=== PATIENT | female | born 1970 | race Caucasian/White ===

== ENCOUNTER 2019-12-08 09:16 | Outpatient (CLI) | payer BC, SELFPAY ==
--- NOTE | 2019-12-08 10:21 | ECG_ITS ---
[facility] ED Test Date: 2019-12-08 Pat Name: Radha Gallagher Department: Room: Gender: Female [employer]: : 1970 Requested By: Wili Zepeda Order Number: [id number] Juanito MD: Ronny Martínez M.D. Measurements Intervals Continental Rate: 69 P: 48 NH: 153 QRS: 28 QRSD: 82 T: 46 QT: 389 QTc: 418 Interpretive Statements SINUS RHYTHM Compared to ECG 10/24/2018 15:29:50 No significant changes Electronically Signed On 12-08-2019 17:47:00 CDT by Ronny Martínez M.D. [email or web address]
[2019-12-08 11:39] LABS: Basophils # 0.1 10^3/uL (0.0-0.1); Basophils % 0.9 %; Eosinophils # 0.1 10^3/uL (0.0-0.8); Eosinophils % 1.8 %; Hematocrit 40.6 % (37.0-47.0); Hemoglobin 12.9 g/dL (11.5-15.3); Lymphocytes % 30.2 %; Mean Corpuscular HGB Conc 31.8 g/dL (30.0-36.0); Mean Corpuscular Hemoglobin 29.3 pg (28.0-34.0); Mean Corpuscular Volume 92.1 fL (81-99); Mean Platelet Volume 9.5 fL (7.4-10.4); Monocytes # 0.5 10^3/uL (0.2-0.9); Monocytes % 7.1 %; Neutrophils % 59.8 %; Nucleated Red Blood Cells % 0 %; Platelet Count 338 10^3/cmm (130-400); Red Blood Count 4.41 10^6/uL (4.1-5.3); Red Cell Distribution Width 15.7 % (12.1-15.1); White Blood Count 6.6 10^3/uL (4.0-10.0)
[2019-12-08 12:01] LABS: Alanine Aminotransferase 11 U/L (0-33); Albumin Level 4.6 g/dL (3.5-5.2); Alkaline Phosphatase 83 IU/L (35-105); Anion Gap 16.4 (5-19); Aspartate Amino Transferase 16 U/L (0-32); Blood Urea Nitrogen 8 mg/dL (6-20); Calcium 9.6 mg/dL (8.5-10.5); Carbon Dioxide 25 mmol/L (22-29); Chloride 101 mmol/L (98-107); Globulin 3.3 g/dL (1.3-4.6); Glomerular Filtration Rate 88.9 mL/min (90-130); Glucose 97 mg/dL (65-115); Osmolality Calculated 282 mOsm/kg (285-295); Potassium 4.4 mmol/L (3.5-5.1); Sodium 138 mmol/L (136-145); Total Bilirubin 0.3 mg/dL (0.15-1.2); Total Protein 7.9 g/dL (6.6-8.7)
== END 2019-12-08 09:17 | disposition home or self-care (01) ==
PROVIDERS: Family Provider Physician Assistant; Visit Provider Specialist
DX: Z01.810 Encounter for preprocedural cardiovascular examination (principal)
CPT/HCPCS: 36415; 80053; 85025; 93005

== ENCOUNTER 2019-12-15 | Outpatient (CLI) | payer BC, SELFPAY | END 2019-12-15 23:00 | disposition home or self-care (01) | LOC: LAB 01-31 08:45 | PROVIDERS: Family Provider Physician Assistant; Visit Provider Family Medicine | DX: C44.311 Basal cell carcinoma of skin of nose (principal) | CPT/HCPCS: 80500; 88305 ==

== ENCOUNTER 2020-07-11 11:45 | Outpatient (CLI) | payer BC, SELFPAY ==
--- NOTE | 2020-07-11 | US_ITS ---
WS: [id number] ULTRASOUND PELVIS TECHNIQUE: Transabdominal. Transvaginal deferred CLINICAL INFORMATION: MENORRHAGIA, PREMENOPAUSAL LMP: 07/03/2020 : No. COMPARISON: None. FINDINGS: Uterus Orientation: Anteverted. Size: 10.1 cm x 6.5 cm x 5.1 cm Masses: None. Cervix: 3.8 cm. Endometrium: Focal lobular endometrial thickening suspicious for polyp measuring 2.0 x 1.6 x 2.1 cm. Endometrium thickness: 14 mm. Adnexa: Heterogeneous ovarian lesions bilaterally measuring 2.7 x 5.0 x 3.0 cm on the right and 3.7 x 3.8 x 3.8 cm in the left suspicious for hemorrhagic cysts. Right ovary size: 4.4 cm x 5.0 cm x 2.7 cm. Right ovary volume: 31.7 ccm3 Left ovary size: 5.5 cm x 4.2 cm x 4.9 cm. Left ovary volume: 58.4 ccm3 Free fluid: None. Other findings: None. US/US pelvic complete* [id number] IMPRESSION: 1. Focal lobular endometrial thickening suspicious for polyp measuring 2.0 x 1 .6 x 2.1 cm. 2. Diffuse endometrial thickening measuring 14 mm. 3. Complex heterogeneous ovarian lesions bilaterally measuring 2.7 x 5.0 x 3.0 cm on the right and 3.7 x 3.8 x 3.8 cm in the left suspicious for hemorrhagic cyst. Recommend follow-up in one to 2 menstrual cycles.
== END 2020-07-11 11:46 | disposition home or self-care (01) ==
LOC: RADOUTREAD 13:03
PROVIDERS: PCP Physician Assistant; Visit Provider Physician Assistant
DX: N92.4 Excessive bleeding in the premenopausal period (principal)
CPT/HCPCS: 76856

== ENCOUNTER → 2020-07-13 13:34 | Outpatient (BNVA) | payer BC, SELFPAY | PROVIDERS: PCP Physician Assistant; Visit Provider Obstetrics & Gynecology | DX: Z20.822 Contact with and (suspected) exposure to COVID-19 (principal); Z01.812 Encounter for preprocedural laboratory examination; N92.4 Excessive bleeding in the premenopausal period; N83.8 Other noninflammatory disorders of ovary, fallopian tube and broad ligament | CPT/HCPCS: 81025; 87635 ==

== ENCOUNTER 2021-01-26 11:44 | Outpatient (CLI) | payer BC, SELFPAY ==
--- NOTE | 2021-01-26 11:48 | MM_ITS ---
WS: [id number] BILATERAL DIGITAL SCREENING MAMMOGRAPHY WITH CAD CLINICAL INFORMATION: SCREENING HISTORY: Screening mammogram. No current complaints. COMPARISON: October 04, 2015 TECHNIQUE: Bilateral CC and MLO views. FINDINGS: The breasts are composed of heterogeneous fibroglandular density tissue, which can limit the detectio n of small underlying mass lesions. No suspicious mass, asymmetry, calcifications, or architectural d istortion. No evidence of malignancy. MM/[place] [id number] IMPRESSION: BI-RADS: 1-Negative FOLLOW UP: 1 Year Follow-up Recommend return to annual screening mammography.
== END 2021-01-26 11:45 | disposition home or self-care (01) ==
LOC: RADSHAW 11:46
PROVIDERS: PCP Physician Assistant; Visit Provider Physician Assistant
DX: Z12.31 Encounter for screening mammogram for malignant neoplasm of breast (principal)
CPT/HCPCS: 77067

== ENCOUNTER 2022-10-23 12:40 | Outpatient (CLI) | payer OTHER, SELFPAY ==
--- NOTE | 2022-10-23 13:03 | MM_ITS ---
WS: [id number] BILATERAL 3D TOMOSYNTHESIS DIGITAL SCREENING MAMMOGRAPHY WITH CAD CLINICAL INFORMATION: SCREENING HISTORY: Screening mammogram. No current complaints. COMPARISON: 2020 TECHNIQUE: Bilateral CC and MLO views. FINDINGS: Scattered fibroglandular densities bilaterally. No suspicious focal mass, asymmetry, calcifications, or architectural distortion. No evidence of malignancy. MM/[place] [id number] IMPRESSION: BI-RADS: 1-Negative FOLLOW UP: 1 Year Follow-up Recommend return to annual screening mammography.
== END 2022-10-23 12:41 | disposition home or self-care (01) ==
PROVIDERS: PCP Physician Assistant; Visit Provider Physician Assistant
DX: Z12.31 Encounter for screening mammogram for malignant neoplasm of breast (principal)
CPT/HCPCS: 77063; 77067

== ENCOUNTER 2024-02-06 13:04 | Outpatient (CLI) | payer OTHER, SELFPAY ==
--- NOTE | 2024-02-06 13:08 | MM_ITS ---
WS: [id number] BILATERAL 3D TOMOSYNTHESIS DIGITAL SCREENING MAMMOGRAPHY WITH CAD CLINICAL INFORMATION: SCREENING HISTORY: Screening mammogram. No current complaints. COMPARISON: 2022 TECHNIQUE: Bilateral CC and MLO views. FINDINGS: Scattered fibroglandular densities bilaterally. No suspicious focal mass, asymmetry, calcifications, or architectural distortion. No evidence of malignancy. MM/[place] [id number] IMPRESSION: BI-RADS: 1-Negative FOLLOW UP: 1 Year Follow-up Recommend return to annual screening mammography.
== END 2024-02-06 13:05 | disposition home or self-care (01) ==
LOC: RAD 13:05
PROVIDERS: PCP Physician Assistant; Visit Provider Physician Assistant
DX: Z12.31 Encounter for screening mammogram for malignant neoplasm of breast (principal); R92.323 Mammographic fibroglandular density, bilateral breasts
CPT/HCPCS: 77063; 77067

== ENCOUNTER 2025-04-06 20:03 | Outpatient (CLI) | payer OTHER, SELFPAY | END 2025-04-06 20:04 | disposition home or self-care (01) | LOC: SLEEP 20:04 | PROVIDERS: PCP Physician Assistant; Referring Provider Physician Assistant; Visit Provider Internal Medicine Pulmonary Disease | DX: G47.33 Obstructive sleep apnea (adult) (pediatric) (principal) | CPT/HCPCS: 95811 ==

== ENCOUNTER 2025-05-16 09:18 | Outpatient (CLI) | payer OTHER, SELFPAY ==
--- NOTE | 2025-05-16 09:30 | MM_ITS ---
WS: [id number] BILATERAL SCREENING DIGITAL TOMOSYNTHESIS MAMMOGRAM WITH CAD HISTORY: SCREENING COMPARISON: 02/06/2024, 10/23/2022, 10/04/2015 Bilateral CC and MLO views with tomosynthesis and synthetic mammography submitted. Computer aided detection analyzed. Breast composition: There are scattered areas of fibroglandular density. No suspicious masses, microcalcifications or architectural distortion. Benign calcification central LEFT breast. MM/MM scr BI tomosynthesis [id number] IMPRESSION: BI-RADS: 2 - Benign. FOLLOW UP: 1 Year Follow-up
== END 2025-05-16 09:19 | disposition home or self-care (01) ==
PROVIDERS: PCP Physician Assistant; Visit Provider Physician Assistant
DX: Z12.31 Encounter for screening mammogram for malignant neoplasm of breast (principal); R92.323 Mammographic fibroglandular density, bilateral breasts; R92.1 Mammographic calcification found on diagnostic imaging of breast
CPT/HCPCS: 77063; 77067